=== PATIENT | male | born 1985 | race Caucasian/White ===

== ENCOUNTER 2020-11-17 19:01 | Emergency (ER) | payer BC ==
--- NOTE | 2020-11-17 20:26 | EDM.PDOC ---
ED HPI GENERAL MEDICAL PROBLEM - General Chief Complaint: Genitourinary Problem Stated Complaint: NEEDS AN XRAY OF TESTICLES/SENT FROM [facility] Time Seen by Provider: 11/17/20 19:35 Source of Information: Reports: Patient, Family () History Limitations: Reports: No Limitations - History of Present Illness INITIAL COMMENTS - FREE TEXT/NARRATIVE: Mr. Garner is a very pleasant 35-year-old gentleman who states that he developed a pulling sensation to his left teste this past 11/14/2020. He noticed that the left teste appeared to be swollen yesterday. He was seen in [place] earlier this afternoon. He states that they examined him, but that no tests were performed. They felt that he is probably suffering from epididymitis, but they recommended an ultrasound, which they were incapable of performing, therefore directed him here. No prior similar symptoms. The patient denies having a recent fever, chills, nausea, vomiting, constipation, diarrhea, or urinary symptoms. He states that he has been taking ibuprofen for the discomfort, with the most recent dose of 600 mg this morning. He states that he last ate around 14:00 this afternoon. Here in the ED, the patient is found to be hemodynamically stable, afebrile, saturating 99% on room air. He appears to be comfortable, in no acute distress. Prior to Monday, the patient denies having a recent fever, chills, sore throat, ear pain, nasal or sinus congestion, cough, dyspnea, chest pain, palpitations, nausea, vomiting, constipation, diarrhea, abdominal pain, urinary symptoms, recent weight gain or weight loss, recent bloody bowel movements or black bowel movements, recent joint aches, headaches, or rashes. The patient does not have a PCP. Treatments [employer]OR: Reports: NSAIDS Other Treatments [employer] AMB[employer]OR: t Left Scrotum Pain Score (Numeric/FACES): 2 - Related Data Allergies Allergy/AdvReac Type Severity Reaction Status Date / Time No Known Allergies Allergy Verified 11/17/20 19:08 Home Meds: Home Meds Cholecalciferol (Vitamin D3) [Vitamin D] 5,000 unit PO ASDIRECTED 11/17/20 [History] Past Medical History HEENT History: Reports: Impaired Vision - Infectious Disease History Infectious Disease History: Reports: Chicken Pox - Past Surgical History HEENT Surgical History: Reports: Oral Surgery (dental extractions) GI Surgical History: Reports: Hernia, Inguinal (left, at 2 yrs old) Social & Family History - Tobacco Use Tobacco Use Status *Q: Current Every Day Tobacco User Years of Tobacco use: 19 Packs/Tins Daily: 0.3 Packs/Tins Daily Comment: Down from 06/06 ppd Tobacco Use Comment: Started smoking at 16 yrs old - Caffeine Use Caffeine Use: Reports: Coffee - Alcohol Use Alcohol Use History: Yes Alcohol Use Frequency: Socially - Recreational Drug Use Recreational Drug Use: No - Living Situation & Occupation Living situation: Reports: , with Spouse, with Family (2 kids) Occupation: Employed (diesel mechanic apprentice) ED ROS GENERAL - Review of Systems Review Of Systems: Comprehensive ROS is negative, except as noted in HPI. ED EXAM, RENAL/ - Physical Exam Exam: See Below Exam Limited By: No Limitations General Appearance: Alert, No Apparent Distress, Thin Eye Exam: Bilateral Eye: EOMI, Normal Inspection Ears: Normal External Exam, Hearing Grossly Normal Nose: Normal Inspection Throat/Mouth: Normal Inspection, Normal Lips, Normal Voice, No Airway Compromise Head: Atraumatic, Normocephalic Neck: Normal Inspection, Full Range of Motion Respiratory/Chest: No Respiratory Distress, Lungs Clear, Normal Breath Sounds, No Accessory Muscle Use Cardiovascular: Normal Peripheral Pulses, Regular Rate, Rhythm, No Edema, No Gallop, No JVD, No Murmur, No Rub GI/Abdominal: Normal Bowel Sounds, Soft, Non-Tender (including suprapubically), No Organomegaly, No Distention, No Abnormal Bruit, No Mass (Male) Exam: No Hernia, Circumcised, Testicular Tenderness (L) (tender compressible mass superior and anterior to left teste). No: Inguinal Lymphadenopathy Back Exam: Normal Inspection, Full Range of Motion. No: CVA Tenderness (L), CVA Tenderness (R) Extremities: Normal Inspection, Normal Range of Motion, No Pedal Edema, Normal Capillary Refill Neurological: Alert, Oriented, Normal Cognition, No Motor/Sensory Deficits Psychiatric: Normal Affect Skin Exam: Warm, Dry, Intact, Normal Color, No Rash Course - Vital Signs Last Recorded V/S: Last Vital Signs Temp 36.7 C 11/17/20 19:13 Pulse 79 11/17/20 19:13 Resp 18 11/17/20 19:13 BP 133/89 11/17/20 19:13 Pulse Ox 99 11/17/20 19:13 - Orders/Labs/Meds Orders: Active Orders 24 hr Category Date Time Status Scrotum and Contents [US] Stat Exams 11/17/20 20:17 Taken Labs: Laboratory Tests 11/17/20 11/17/20 11/17/20 Range/Units 20:27 20:27 20:35 WBC 4.41 (4.23-9.07) K/mm3 RBC 4.46 L (4.63-6.08) M/mm3 Hgb 14.0 (13.7-17.5) gm/dl Hct 41.0 (40.1-51.0) % MCV 91.9 (79.0-92.2) fl MCH 31.4 (25.7-32.2) pg MCHC 34.1 (32.2-35.5) g/dl RDW Std Deviation 42.0 (35.1-43.9) fL Plt Count 139 L (163-337) K/mm3 MPV 9.4 (9.4-12.3) fl Neutrophils % (Manual) 36 L (40-60) % Band Neutrophils % 1 (0-10) % Lymphocytes % (Manual) 49 H (20-40) % Atypical Lymphs % 0 % Monocytes % (Manual) 4 (2-10) % Eosinophils % (Manual) 10 H (0.8-7.0) % Basophils % (Manual) 0 L (0.2-1.2) Platelet Estimate Decreased Plt Morphology Comment See note RBC Morph Comment Normal Sodium (136-145) mEq/L Potassium (3.5-5.1) mEq/L Chloride (98-107) mEq/L Carbon Dioxide (21-32) mEq/L Anion Gap (5-15) BUN (7-18) mg/dL Creatinine (0.7-1.3) mg/dL Est Cr Clr Drug Dosing mL/min Estimated GFR (MDRD) (>60) mL/min BUN/Creatinine Ratio (14-18) Glucose (70-99) mg/dL Calcium (8.5-10.1) mg/dL Total Bilirubin (0.2-1.0) mg/dL AST (15-37) U/L ALT (16-63) U/L Alkaline Phosphatase (46-116) U/L Total Protein (6.4-8.2) g/dl Albumin (3.4-5.0) g/dl Globulin gm/dL Albumin/Globulin Ratio (1-2) Urine Color Yellow (Yellow) Urine Appearance Clear (Clear) Urine pH 6.0 (5.0-8.0) Ur Specific [place] 1.020 (1.005-1.030) Urine Protein Negative (Negative) Urine Glucose (UA) Negative (Negative) Urine Ketones Negative (Negative) Urine Occult Blood Negative (Negative) Urine Nitrite Negative (Negative) Urine Bilirubin Negative (Negative) Urine Urobilinogen 1.0 (0.2-1.0) Ur Leukocyte Esterase Negative (Negative) Urine RBC 0-5 (0-5) /hpf Urine WBC 0-5 (0-5) /hpf Ur Squamous Epith Cells 0-5 (0-5) /hpf Urine Bacteria Occasional (FEW) /hpf Urine Mucus Few (FEW) /hpf C trachomatis DNA (PCR) Not detected N gonorrhoeae DNA (PCR) Not detected 11/17/20 Range/Units 20:35 WBC (4.23-9.07) K/mm3 RBC (4.63-6.08) M/mm3 Hgb (13.7-17.5) gm/dl Hct (40.1-51.0) % MCV (79.0-92.2) fl MCH (25.7-32.2) pg MCHC (32.2-35.5) g/dl RDW Std Deviation (35.1-43.9) fL Plt Count (163-337) K/mm3 MPV (9.4-12.3) fl Neutrophils % (Manual) (40-60) % Band Neutrophils % (0-10) % Lymphocytes % (Manual) (20-40) % Atypical Lymphs % % Monocytes % (Manual) (2-10) % Eosinophils % (Manual) (0.8-7.0) % Basophils % (Manual) (0.2-1.2) Platelet Estimate Plt Morphology Comment RBC Morph Comment Sodium 142 (136-145) mEq/L Potassium 4.1 (3.5-5.1) mEq/L Chloride 104 (98-107) mEq/L Carbon Dioxide 26 (21-32) mEq/L Anion Gap 16.1 H (5-15) BUN 14 (7-18) mg/dL Creatinine 1.0 (0.7-1.3) mg/dL Est Cr Clr Drug Dosing 100.70 mL/min Estimated GFR (MDRD) > 60 (>60) mL/min BUN/Creatinine Ratio 14.0 (14-18) Glucose 87 (70-99) mg/dL Calcium 8.2 L (8.5-10.1) mg/dL Total Bilirubin 0.3 (0.2-1.0) mg/dL AST 25 (15-37) U/L ALT 24 (16-63) U/L Alkaline Phosphatase 63 (46-116) U/L Total Protein 6.6 (6.4-8.2) g/dl Albumin 3.5 (3.4-5.0) g/dl Globulin 3.1 gm/dL Albumin/Globulin Ratio 1.1 (1-2) Urine Color (Yellow) Urine Appearance (Clear) Urine pH (5.0-8.0) Ur Specific [place] (1.005-1.030) Urine Protein (Negative) Urine Glucose (UA) (Negative) Urine Ketones (Negative) Urine Occult Blood (Negative) Urine Nitrite (Negative) Urine Bilirubin (Negative) Urine Urobilinogen (0.2-1.0) Ur Leukocyte Esterase (Negative) Urine RBC (0-5) /hpf Urine WBC (0-5) /hpf Ur Squamous Epith Cells (0-5) /hpf Urine Bacteria (FEW) /hpf Urine Mucus (FEW) /hpf C trachomatis DNA (PCR) N gonorrhoeae DNA (PCR) - Re-Assessments/Exams Free Text/Narrative Re-Assessment/Exam: 11/17/20 20:19 As above, the patient developed a pulling sensation to his left teste on Monday, then noticed swelling to the left teste yesterday. He was seen in [place] this afternoon, and sent here for further evaluation. He states that no tests were done. He last took some ibuprofen around 6:00 this morning, and last ate around 14:00 this afternoon. On examination, the left teste is nontender, however, there is a tender reducible swelling superior and anterior to the teste. This does not appear to be consistent with epididymitis, and I feel that testicular torsion is unlikely, as well - in no small part because the patient does not appear to be toxic. I would not expect an inguinal hernia to be as tender as it is, although a hydrocele could be. I have ordered a work-up that includes some blood tests, a urine GC/chlamydia by PCR, a urinalysis by clean-catch, and an ultrasound of the scrotum. The patient declined an offer for pain medication. 11/17/20 21:43 The patient's CBC is remarkable for modest thrombocytopenia of 139,000, with the remainder of his CBC being unremarkable. His CMP is remarkable for an anion gap slightly elevated at 16.1, but with a bicarbonate normal at 26, and the remainder of his CMP being unremarkable. His urinalysis is unremarkable. Ultrasound of the scrotum is read by [facility] as: 1. 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 Follow-up is recommended if there is a family history of testicular germ-cell tumor. 2. Small bilateral hydroceles, left greater than right. 3. Multiple right epididymal cysts, largest is 4 mm. Urine GC/chlamydia by PCR is still pending. 11/17/20 22:45 Urine chlamydia trichomonas and Neisseria gonorrhea by PCR is negative for both. 11/17/20 22:48 Test results discussed with the patient and his . As above, it appears that the tender but reducible mass adjacent to his left teste is due to a hydrocele. I will refer him to Dr. Espinoza for further evaluation. Departure - Departure Time of Disposition: 22:50 Disposition: Home, Self-Care 01 Condition: Good Clinical Impression: Hydrocele in adult - Discharge Information *PRESCRIPTION DRUG MONITORING PROGRAM REVIEWED*: Not Applicable *COPY OF PRESCRIPTION DRUG MONITORING REPORT IN PATIENT DANIEL: Not Applicable Instructions: Hydrocele, Adult Referrals: PCP,None [Primary Care Provider] - Jones Espinoza MD [Ordering Only Provider] - Forms: ED Department Discharge Additional Instructions: You were seen in the emergency room after developing a pulling sensation to your left testicle on Monday, then noticing the left testicle to be swollen yesterday. Work-up in the ER included some blood tests, a gonorrhea/chlamydia test by PCR, a urinalysis, and an ultrasound of your scrotum. The ultrasound indicates that the swelling is due to a hydrocele. The remainder of your tests were unremarkable. We recommend that you follow-up with the Urologist Dr. Jones Espinoza, in [place], for further evaluation. If any other problems, please do not hesitate to return to the ER. Sepsis Event Note (ED) - Evaluation Sepsis Screening Result: No Definite Risk - Focused Exam Vital Signs: Vital Signs Temp Pulse Resp BP Pulse Ox 11/17/20 19:13 36.7 C 79 18 133/89 99 - My Orders Last 24 Hours: My Active Orders 11/17/20 20:17 Scrotum and Contents [US] Stat - Assessment/Plan Last 24 Hours: My Active Orders 11/17/20 20:17 Scrotum and Contents [US] Stat
[2020-11-17 22:36] LABS: C. TRACHOMATIS BY PCR NOT DETECTED; N. GONORRHOEAE BY PCR NOT DETECTED
--- NOTE | 2020-11-18 08:23 | US ---
Testicular ultrasound: Multiple real-time images were obtained. Comparison: No prior testicular imaging is available. Both testicles show multiple small calcifications compatible with so-called microlithiasis. No focal nodule is seen within either testicle. Arterial and venous blood flow are seen within both testicles. Left epididymis appears within normal limits. Right epididymis shows two small epididymal cysts measuring 3.6 mm and 3.8 mm. Mild bilateral hydroceles are noted. Measurements: Right testicle: 3.5 x 1.6 x 2.4 cm Left testicle: 3.7 x 2.0 x 2.1 cm Impression: 1. Testicular microlithiasis. This has a slight increased risk for testicular carcinoma. Nothing is seen to indicate testicular carcinoma on current exam. Follow-up testicular imaging could be obtained in one year. 2. Small bilateral hydroceles are noted. 3. Two small epididymal cysts on the right side. Diagnostic code #3 I agree with preliminary report from [facility], finalized on 11/17/20, 10:31 PM CDT, code 1
== END 2020-11-17 23:03 | disposition home or self-care (01) ==
LOC: JD.ED 19:01
DX: N43.3 Hydrocele, unspecified (principal); Z72.0 Tobacco use
CPT/HCPCS: 36415; 76870; 76870-26; 80053; 81001; 85007; 85027; 87491; 87591; 93975; 99283; 99284-25